=== PATIENT | female | born 1940 | race Caucasian/White ===

== ENCOUNTER 2017-06-27 06:58 | Day surgery (SDC) | payer MEDICARE, OTHER ==
[~2017-06-27] VITALS: Ht 177.8 cm; Wt 108.0 kg
[~2017-06-27 06:58] MED LIST: CAL-MAG COMPLE1 EACH PO; CYMBALTA60 MG PO; GARLIC500 M1 PO; LYRICA75 MG PO; METFORMIN HCL500 MG PO; PRED FORTE1 ML OPTH; PRILOSEC OTC20 MG PO; RED YEAST RICE600 MG PO; VITAMIN C1000 MG PO
== END 2017-06-27 09:24 | disposition home or self-care (01) ==
LOC: DS 06:58 → OPS 06:58 → DS 08:00 → OPS 09:24
PROVIDERS: Ophthalmology
PROC: 08RJ3JZ Replacement of Right Lens with Synthetic Substitute, Percutaneous Approach (ICD-10-PCS; principal; 2017-06-27 08:00)
DX: H25.11 Age-related nuclear cataract, right eye (principal); K21.9 Gastro-esophageal reflux disease without esophagitis; M19.90 Unspecified osteoarthritis, unspecified site; E11.42 Type 2 diabetes mellitus with diabetic polyneuropathy; F32.9 Major depressive disorder, single episode, unspecified; Z88.5 Allergy status to narcotic agent; Z88.1 Allergy status to other antibiotic agents; Z91.011 Allergy to milk products; Z79.899 Other long term (current) drug therapy; Z83.3 Family history of diabetes mellitus
CPT/HCPCS: J2250

== ENCOUNTER 2017-07-25 07:27 | Day surgery (SDC) | payer MEDICARE, OTHER ==
[~2017-07-25] VITALS: Ht 177.8 cm; Wt 108.0 kg
== END 2017-07-25 09:43 | disposition home or self-care (01) ==
LOC: DS 07:27 → OPS 07:27
PROVIDERS: Ophthalmology
PROC: 08RK3JZ Replacement of Left Lens with Synthetic Substitute, Percutaneous Approach (ICD-10-PCS; principal; 2017-07-25 08:30)
DX: E11.36 Type 2 diabetes mellitus with diabetic cataract (principal); H25.12 Age-related nuclear cataract, left eye; K21.9 Gastro-esophageal reflux disease without esophagitis; M19.90 Unspecified osteoarthritis, unspecified site; F32.9 Major depressive disorder, single episode, unspecified; Z88.5 Allergy status to narcotic agent; Z88.1 Allergy status to other antibiotic agents
CPT/HCPCS: J2250